=== PATIENT | male | born 1975 | race Caucasian/White ===

== ENCOUNTER 2022-01-21 16:25 | Observation (INO) | payer MEDICARE, SELFPAY ==
[2022-01-21] VITALS (26 sets, daily range): BP systolic 128–165; BP diastolic 86–105; PULSE 77–98; RESP 8–24; TEMP 33.7–36.8; O2SAT 93–99
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
[2022-01-21] MEDS: Normal Saline Flush 10 ML SYR IVP ×2 (16:40→22:50)
[2022-01-21] MEDS: MORPHine 10 MG/ML VIAL 6 MG IVP ×2 (16:45→17:07)
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
[2022-01-21] MEDS: Normal Saline 1,000 ML 1000 ML IV ×2 (16:47→18:29)
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
[2022-01-21 16:58] LABS: HCT 46.6 % (40.0-50.0); HGB 15.8 g/dL (13.5-17.5); MCH 29.3 pg (27.0-33.0); MCHC 33.9 % (32.0-36.0); MCV 86 fL (80-95); MPV 10.8 fL (8.0-11.0); RDW 13.2 % (11.8-14.1); RDW-SD 40.7 fL; WBC 18.12 10^3/uL (4.4-10.8)
[2022-01-21 17:11] LABS: PTT Activated 22.4 sec (21.0-27.5); Prothrombin Time 9.6 sec (9.3-11.0)
[2022-01-21] MEDS: Ondansetron 4 MG/2 ML VIAL (17:11)
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
--- NOTE | 2022-01-21 17:16 | NUR.NOTE ---
Patient requested we call Madeline Talha [phone] so that she could get a hold of his sister Nathaly. Permission was given for us to give information to Madeline Guzmán, the patient's sister, Nathaly, and the patient's brother, Benoit. Nursing Note:
--- NOTE | 2022-01-21 17:17 | NUR.NOTE ---
Nursing Note: Patient gave verbal permission for [facility] to speak to his sister Alize Luna [phone]
[2022-01-21 17:21] LABS: ALT 70 U/L (16-63); AST 64 U/L (15-37); Albumin 4.1 g/dL (3.4-5.0); Alkaline Phosphatase 116 U/L (46-116); Anion Gap 9.3 mmol/L (3-11); BUN 17 mg/dL (7-18); Bilirubin, Total 0.5 mg/dL (0.2-1.0); CO2 28.7 mmol/L (21.0-32.0); CREATININE 1.5 mg/dL (0.70-1.30); Calcium 9.1 mg/dL (8.5-10.1); Chloride 104 mmol/L (98-107); Estimated GFR 50.84 (mL/min/1.73m2); Glucose 176 mg/dL (74-106); Lipase 90 U/L (73-393); Potassium 3.7 mmol/L (3.5-5.1); Sodium 142 mmol/L (136-145); Troponin I < 50 ng/L (<or=60)
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
[2022-01-21 17:35] LABS: ETHANOL BLOOD < 3.0 mg/dL (<10)
[2022-01-21 17:51] LABS: Absolute Eosinophil Count 0.18 10^3/uL (0.0-0.7); Absolute Lymphocyte Count 4.53 10^3/uL (1.2-3.4); Absolute Monocyte Count 1.99 10^3/uL (0.1-0.8); Absolute Neutrophil Count 11.42 10^3/uL (1.2-6.7); Atypical Lymphocytes % 2; Diff Comment Manual Differential; Platelet Count 335 10^3/uL (130-400); RBC Morphology Normal
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
[2022-01-21] MEDS: MORPHine 10 MG/ML VIAL 8 MG IVP (18:10)
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
[2022-01-21 18:36] LABS: Bilirubin Negative (Negative); Blood Moderate (Negative); Clarity Clear (Clear); Glucose Negative (Negative); Ketones Negative (Negative); Leukocyte Esterase Negative (Negative); Nitrite Negative (Negative); Specific Gravity 1.025 (1.005-1.025); Urobilinogen 0.2 EU/dL (Up TO 0.2); pH 5.5 (5-8)
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
[2022-01-21 18:44] LABS: Bacteria Negative HPF (Negative); Crystals Few Amorphous HPF (Negative); Epithelial Cells Few HPF (Negative); Mucus Heavy (Negative); WBC 0-2 HPF (0-5)
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
[2022-01-21 18:45] LABS: C & S Indicated? No; Casts 10-20 Hyaline LPF (Negative)
[2022-01-21 18:49] LABS: *AMPHETAMINES SCREEN URINE Positive (Negative); *BARBITURATES SCREEN URINE Negative (Negative); *BENZODIAZEPINES SCREEN URINE Negative (Negative); Cannabinoids THC Negative (Negative); Cocaine Screen,Urine Positive (Negative); METHADONE URINE SCREEN Negative (Negative); OPIATES URINE SCREEN Positive (Negative)
[2022-01-21 18:55] LABS: Tricyclic Antidepressants Negative (Negative)
[2022-01-21] MEDS: Normal Saline 1,000 ML 150 ML IV (19:15)
[2022-01-21 19:37] LABS: Source Nasal/Nares
--- NOTE | 2022-01-21 19:44 | NUR.NOTE ---
pt wanting to leave AMA - speaking with sister (who is a nurse) by phone Nursing Note:
[2022-01-21 20:41] LABS: COVID-19 PCR Negative (Negative)
--- NOTE | 2022-01-21 21:00 | NUR.NOTE ---
1939: pt wanting to leave AMA calling sister for ride Nursing Note:
--- NOTE | 2022-01-21 21:04 | NUR.NOTE ---
sling applied to right arm by BOBBY,RN at 2039 Nursing Note:
[2022-01-21] MEDS: Lidocaine 5% Patch 1 PATCH TP (22:48)
[2022-01-21] MEDS: oxyCODONE 5 MG TAB PO (22:50)
[2022-01-21] MEDS: Ketorolac 30 MG/ML VIAL IVP (22:50)
[2022-01-22] VITALS (8 sets, daily range): BP systolic 111–158; BP diastolic 67–84; PULSE 64–97; RESP 17–20; TEMP 36.5–37.3; O2SAT 94–99; BMI 34.9
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
[2022-01-22] MEDS: oxyCODONE 5 MG TAB PO ×3 (06:32→18:46)
[2022-01-22] MEDS: Ketorolac 30 MG/ML VIAL IVP ×3 (06:32→19:43)
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
[2022-01-22] MEDS: Patch Removal 1 EACH TP (10:00)
--- NOTE | 2022-01-22 10:03 | W.ANESNERVE ---
Nerve Block Single Injection Procedure Date and Time Date Performed: 01/22/22 Procedure Start: 09:15 Location Where Procedure Performed Procedure Location: Med/Surg Reason Performed: Acute Pain Management Pain Diagnosis: Rib Pain Requesting Provider: Broderick Quick Timeout Performed Timeout Performed: Yes Monitoring Used ECG, Blood Pressure, SpO2 and See EMR for corresponding vital signs Sterility Sterility: Hand Hygiene, Surgical Cap, Surgical Mask, Sterile Gloves and Chlorhexidine Sedation Given During Procedure Sedation Given (Indicate Dose Given): No Sedation given Patient Mental Status Patient Mental Status: Awake Nerve Block 1st Nerve Block: Laterality: Right Block Type: Erector Spinae (Upper) Needle / Catheter Used: 100mm SonoPlex II Local Anesthetic Bolus (Indicate Dose Given): Lidocaine used for local infiltration of skin and Bupivacaine 0.25% Dose:: 30 mL Additives (Indicate Dose Given): Precedex Dose:: 100mcg Ultrasound: Sterile probe cover and gel used Ultrasound Image Saved?: Yes Nerve Stimulator: Not Used Paresthesia: None Procedure Tolerated: No Complications and Patient tolerated well Procedure Outcome: Successful Performed By: Ivon Alberto Supervised By: Hubert Blanco
[2022-01-22] MEDS: Albuterol 2.5 MG/3 ML INH SOLN VIAL UPD (10:08)
[2022-01-22] MEDS: Normal Saline Flush 10 ML SYR IVP ×2 (12:26→19:43)
[2022-01-22] MEDS: LORazepam 1 MG TAB PO (12:29)
[2022-01-22] MEDS: Normal Saline 1,000 ML 150 ML IV (13:57)
[2022-01-22] MEDS: Acetaminophen 500 MG TAB 1000 MG PO ×2 (14:26→19:38)
[2022-01-22 14:33] LABS: Abs Immature Grans 0.04 10^3/uL (0.0-0.06); Absolute Basophil Count 0.08 10^3/uL (0.0-0.2); Absolute Eosinophil Count 0.25 10^3/uL (0.0-0.7); Absolute Neutrophil Count 7.12 10^3/uL (1.2-6.7); Basophils % 0.7; Eosinophils % 2.2; HCT 40.4 % (40.0-50.0); HGB 13.5 g/dL (13.5-17.5); Immature Grans % 0.4; Lymphocytes % 23.3; MCH 29.2 pg (27.0-33.0); MCHC 33.4 % (32.0-36.0); MCV 87 fL (80-95); MPV 10.8 fL (8.0-11.0); Monocytes % 9.7; Neutrophils % 63.7; Platelet Count 238 10^3/uL (130-400); RBC 4.63 10^6/uL (4.36-5.78); RDW 13.5 % (11.8-14.1); RDW-SD 42.7 fL; WBC 11.18 10^3/uL (4.4-10.8)
[2022-01-22 14:35] LABS: Absolute Monocyte Count 1.08 10^3/uL (0.1-0.8)
[2022-01-22 14:48] LABS: ALT 47 U/L (16-63); AST 38 U/L (15-37); Albumin 3.3 g/dL (3.4-5.0); Alkaline Phosphatase 92 U/L (46-116); Anion Gap 6.1 mmol/L (3-11); BUN 18 mg/dL (7-18); Bilirubin, Total 0.6 mg/dL (0.2-1.0); CO2 27.9 mmol/L (21.0-32.0); Calcium 8.3 mg/dL (8.5-10.1); Chloride 104 mmol/L (98-107); Glucose 134 mg/dL (74-106); Potassium 3.6 mmol/L (3.5-5.1); Sodium 138 mmol/L (136-145); Total Protein 6.8 g/dL (6.4-8.2)
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
[2022-01-22] MEDS: Albuterol HFA 8 GM 60 PUFF INH IH (21:07)
[2022-01-22] MEDS: Lidocaine 5% Patch 1 PATCH TP (21:14)
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
[2022-01-23] MEDS: Acetaminophen 500 MG TAB 1000 MG PO ×4 (01:52→19:27)
[2022-01-23] MEDS: Ketorolac 30 MG/ML VIAL IVP ×3 (01:55→17:15)
[2022-01-23] MEDS: Normal Saline Flush 10 ML SYR IVP ×3 (01:55→17:15)
[2022-01-23 03:11] VITALS: BP 130/82; PULSE 92; RESP 18; TEMP 36.5; O2SAT 99
[2022-01-23 07:35] VITALS: BP 142/98; PULSE 80; RESP 22; TEMP 36.9; O2SAT 95
[2022-01-23] MEDS: Nicotine 14 MG/24 HR PATCH TD (07:39)
[2022-01-23] MEDS: Albuterol HFA 8 GM 60 PUFF INH IH ×2 (07:42→19:27)
[2022-01-23] MEDS: oxyCODONE 5 MG TAB PO ×3 (07:44→21:26)
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
[2022-01-23] MEDS: Enoxaparin 40 MG/0.4 ML SYR SC (11:00)
[2022-01-23 11:12] VITALS: BP 106/76; PULSE 67; RESP 20; TEMP 36.4; O2SAT 95
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
[2022-01-23] MEDS: LORazepam 0.5 MG TAB PO ×2 (11:18→20:26)
[2022-01-23] MEDS: Patch Removal 1 EACH TP (11:30)
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
[2022-01-23 15:48] VITALS: BP 148/98; PULSE 79; RESP 18; TEMP 36.8; O2SAT 93
[2022-01-23 19:29] VITALS: BP 155/78; PULSE 75; RESP 16; TEMP 36.7; O2SAT 99
[2022-01-23] MEDS: Cyclobenzaprine 10 MG TAB PO (20:26)
[2022-01-23] MEDS: Lidocaine 5% Patch 1 PATCH TP (21:22)
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
[2022-01-23 22:45] VITALS: BP 146/79; PULSE 81; RESP 15; TEMP 36.6; O2SAT 96
[2022-01-24] MEDS: Normal Saline Flush 10 ML SYR IVP ×3 (00:36→12:15)
[2022-01-24] MEDS: Ketorolac 30 MG/ML VIAL IVP ×3 (00:36→12:15)
[2022-01-24] MEDS: Acetaminophen 500 MG TAB 1000 MG PO ×3 (02:26→13:59)
[2022-01-24 02:45] VITALS: BP 113/74; PULSE 79; RESP 20; TEMP 37.5; O2SAT 98
[2022-01-24] MEDS: LORazepam 0.5 MG TAB PO (06:33)
[2022-01-24 06:41] LABS: HCT 39.9 % (40.0-50.0); HGB 13.5 g/dL (13.5-17.5); MCHC 33.8 % (32.0-36.0); MCV 86 fL (80-95); MPV 10.6 fL (8.0-11.0); Platelet Count 264 10^3/uL (130-400); RBC 4.65 10^6/uL (4.36-5.78); RDW 13.5 % (11.8-14.1); RDW-SD 42.3 fL; WBC 8.63 10^3/uL (4.4-10.8)
[2022-01-24] MEDS: Nicotine 14 MG/24 HR PATCH TD (07:40)
[2022-01-24] MEDS: oxyCODONE 5 MG TAB PO ×2 (07:41→14:00)
[2022-01-24 07:44] VITALS: BP 127/80; PULSE 70; RESP 16; TEMP 35.5; O2SAT 93
--- NOTE | 2022-01-24 09:14 | DI.RAD_ITS ---
Exam(s) XR CHEST 2V PA LATERAL EXAM: XR CHEST 2V PA LATERAL CLINICAL HISTORY: rib fractures/productive cough TECHNIQUE: COMPARISON: CR XR CHEST 2V PA LATERAL from 01/22/2022 FINDINGS: Heart is not enlarged. Right clavicle fracture noted. There appear to be some areas of atelectasis and/or consolidation in the lung base on the lateral view, somewhat more prominent than on examinatio n of January 22. No gross pneumothorax seen. There may be small right pleural effusion. IMPRESSION: Increasing basilar atelectasis in comparison with examination of January 22. Superimposed consolidat ion not excluded on the basis of this examination RADIATION DOSE DELIVERED: Total DLP
--- NOTE | 2022-01-24 09:14 | DI.RAD_ITS ---
Exam(s) XR CLAVICLE RT EXAM: XR CLAVICLE RT CLINICAL HISTORY: follow up fracture TECHNIQUE: COMPARISON: CR,XR XR CLAVICLE RT from 01/21/2022 FINDINGS: Two views were obtained. There is a moderately displaced moderately comminuted fracture of the midcl avicle. No additional fracture seen. IMPRESSION: RADIATION DOSE DELIVERED: Total DLP
[2022-01-24] MEDS: Cyclobenzaprine 10 MG TAB PO (09:55)
[2022-01-24] MEDS: Enoxaparin 40 MG/0.4 ML SYR SC (09:55)
[2022-01-24] MEDS: Patch Removal 1 EACH TP (09:57)
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
[2022-01-24 11:23] VITALS: BP 143/90; PULSE 77; RESP 16; TEMP 36.1; O2SAT 95
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
== END 2022-01-24 15:04 | disposition home or self-care (01) ==
LOC: ER 19:49 → MS 20:50
PROVIDERS: Surgery; Admitting Provider Surgery; Emergency Provider Emergency Medicine; Visit Provider Surgery
DX: S22.41XA Multiple fractures of ribs, right side, initial encounter for closed fracture (principal); S42.001A Fracture of unspecified part of right clavicle, initial encounter for closed fracture; J44.9 Chronic obstructive pulmonary disease, unspecified; S73.191A Other sprain of right hip, initial encounter; S32.401A Unspecified fracture of right acetabulum, initial encounter for closed fracture; V29.88XA Motorcycle rider (driver) (passenger) injured in other specified transport accidents, initial encounter; S62.631A Displaced fracture of distal phalanx of left index finger, initial encounter for closed fracture; F17.210 Nicotine dependence, cigarettes, uncomplicated; S76.011A Strain of muscle, fascia and tendon of right hip, initial encounter; S39.012A Strain of muscle, fascia and tendon of lower back, initial encounter; S32.492A Other specified fracture of left acetabulum, initial encounter for closed fracture; S32.491A Other specified fracture of right acetabulum, initial encounter for closed fracture; S60.511A Abrasion of right hand, initial encounter; Z20.822 Contact with and (suspected) exposure to COVID-19; F19.10 Other psychoactive substance abuse, uncomplicated; R82.5 Elevated urine levels of drugs, medicaments and biological substances
CPT/HCPCS: 36415; 73721; 74177; 80048; 80053; 80307; 83690; 85027; 87635; 90471; 96361; 96365; 96372; 96374; 96375; 96376; 97110; 97162; 97530; 99205; 99219; 99225; 99285; J1650; 70450; 71046; 71260; 72125; 72190; 73000; 73110; 73130; 80320; 81003; 81015; 83735; 84484; 85025; 85610; 85730; 94667; G0378; J0690; J1885; J2270; J2405; J3490; J7613